=== PATIENT | female | born 1980 | race Caucasian/White ===

== ENCOUNTER → 2017-07-15 | Outpatient (CLI) | payer BC ==
[~2017-07-15] MED LIST: ALPR1TAB3 PO; FE FCAP3 PO; HYDR-3516 PO; TAMO20TA6 PO; VENL100T PO
[2017-07-15 14:05] LABS: AUTOMATED NEUTROPHIL # 3.2 TH/MM3 (1.8-7.7); BASOPHIL % 0.6 % (0.0-2.0); EOSINOPHIL # 0.1 TH/MM3 (0-0.4); EOSINOPHIL % 2.5 % (0.0-4.0); HEMOGLOBIN 13.5 GM/DL (11.6-15.3); LYMPH % 19.7 % (9.0-44.0); LYMPHOCYTE # 0.9 TH/MM3 (1.0-4.8); MEAN CELL VOLUME 85.9 FL (80.0-100.0); MEAN CORPUSCULAR HEMOGLOBIN 29.9 PG (27.0-34.0); MEAN CORPUSCULAR HGB CONC 34.8 % (32.0-36.0); MEAN PLATELET VOLUME 9.6 FL (7.0-11.0); MONOCYTE # 0.3 TH/MM3 (0-0.9); NEUT % 70.2 % (16.0-70.0); PLATELET COUNT 175 TH/MM3 (150-450); RED BLOOD COUNT 4.54 MIL/MM3 (4.00-5.30); RED CELL DISTRIBUTION WIDTH 13.5 % (11.6-17.2); WHITE BLOOD COUNT 4.6 TH/MM3 (4.0-11.0)
[2017-07-15 14:20] LABS: PROTHROMBIN TIME - PATIENT 9.9 SEC (9.8-11.6)
[2017-07-15 14:29] LABS: ALBUMIN 4.1 GM/DL (3.4-5.0); AST (GOT) 23 U/L (15-37); BICARBONATE 28.9 MEQ/L (21.0-32.0); BLOOD UREA NITROGEN 11 MG/DL (7-18); CALCIUM 8.7 MG/DL (8.5-10.1); CHLORIDE 101 MEQ/L (98-107); CREATININE 0.43 MG/DL (0.50-1.00); GLOMERULAR FILTRATION RATE 164 ML/MIN (>89); GLUCOSE,FASTING 57 MG/DL (74-99); SODIUM (NA) 138 MEQ/L (136-145)
[2017-07-15 14:31] LABS: ALT (GPT) 25 U/L (10-53)
[2017-07-15 14:34] LABS: ALKALINE PHOSPHATASE 115 U/L (45-117); TOTAL BILIRUBIN ADULT 0.6 MG/DL (0.2-1.0); TOTAL PROTEIN 7.7 GM/DL (6.4-8.2)
== END ==
LOC: CPRE 10:52
PROVIDERS: ATTEND Obstetrics & Gynecology Gynecologic Oncology
DX: Z01.812 Encounter for preprocedural laboratory examination (principal); Z85.3 Personal history of malignant neoplasm of breast
CPT/HCPCS: 36415; 80053; 84703; 85025; 85610; 85730

== ENCOUNTER 2017-07-28 08:38 | Observation (INO) | payer BC ==
[~2017-07-28] VITALS: Ht 177.8 cm; Wt 77.1 kg
[2017-07-28] MEDS ORDERED: CHLORHEXIDINE GLUCONATE 2 % 1 PACK (2 CLOTHS) TOPICAL PRN (09:15)
[2017-07-28] MEDS ORDERED: POVIDONE IODINE 5% (ANTISEPSIS KIT) 4 APPLICATIONS EACH NARE PRN (09:15)
[2017-07-28] MEDS ORDERED: HEPARIN SODIUM - SQ 10,000 UNITS/ML VIAL SQ SCH (09:15)
[2017-07-28] MEDS ORDERED: LACTATED RINGER'S 1000 ML IV PRN (09:15)
[2017-07-28] MEDS ORDERED: METOPROLOL TARTRATE 25 MG TAB PO PRN (09:15)
[2017-07-28] MEDS ORDERED: INSULIN HUMAN REGULAR 1,000 UNITS/10 ML VIAL SQ PRN (09:15)
[2017-07-28] MEDS ORDERED: SODIUM CHLORID 0.9% 500 ML IV PRN (09:15)
[2017-07-28] MEDS ORDERED: ceFAZolin 1,000 MG/NS 100 ML IV SCH ×2 (09:15)
[2017-07-28] MEDS ORDERED: LIDOCAINE 0.5%/EPINEPHrine 1:200,000 SOLN 50 ML VIAL ONE (11:11)
[2017-07-28] MEDS ORDERED: ACETAMINOPHEN 1000 MG/100 ML 100 ML IV ONE (11:16)
[2017-07-28] MEDS ORDERED: SUGAMMADEX SODIUM 200 MG/2 ML VIAL IV PUSH ONE (11:16)
[2017-07-28] MEDS ORDERED: FAMOTIDINE 20 MG/2 ML VIAL ONE (11:39)
[2017-07-28] MEDS ORDERED: APREPITANT 40 MG CAP ONE (11:43)
[2017-07-28] MEDS ORDERED: ROCURONIUM INJ 50 MG/5 ML SYRINGE IV PUSH ONE (12:00)
[2017-07-28] MEDS ORDERED: STERILE WATER FOR INJECTION 20 ML VIAL IV ONE (12:00)
[2017-07-28] MEDS ORDERED: KETOROLAC TROMETHAMINE 30 MG/ML (IVP) VIAL IV PUSH ONE (12:00)
[2017-07-28] MEDS ORDERED: ONDANSETRON HCL 4 MG/2 ML VIAL IV ONE (12:00)
[2017-07-28] MEDS ORDERED: PROPOFOL 200 MG/20 ML AMP IV ONE (12:00)
[2017-07-28] MEDS ORDERED: VECURONIUM BROMIDE 20 MG VIAL IV ONE (12:00)
[2017-07-28] MEDS ORDERED: DEXAMETHASONE SOD PHOS 4 MG/ML VIAL IV ONE (12:00)
[2017-07-28] MEDS ORDERED: NORMOSOL R INJ 1,000 ML IV ONE (12:00)
[2017-07-28] MEDS ORDERED: LIDOCAINE HCL 1% PF 5 ML SYRINGE OTHER ONE (12:00)
[2017-07-28] MEDS ORDERED: GLYCOPYRROLATE 1 MG/5 ML SYRINGE IV PUSH ONE (12:00)
[2017-07-28] MEDS ORDERED: NEOSTIGMINE 5 MG/5 ML SYRINGE IV PUSH ONE (12:00)
[2017-07-28] MEDS ORDERED: KETOROLAC TROMETHAMINE 30 MG/ML (IVP) VIAL IVP SCH (15:30)
[2017-07-28] MEDS ORDERED: ALPRAZolam 1 MG TAB PO PRN (15:30)
[2017-07-28] MEDS ORDERED: oxyCODONE/ACETAMINOPHEN 5 MG/325 MG TAB PO PRN ×2 (15:30)
[2017-07-28] MEDS ORDERED: SODIUM CHLORIDE 0.9% FLUSH 10 ML FLUSH IV FLUSH PRN (15:30)
[2017-07-28] MEDS ORDERED: diphenhydrAMINE HCL 25 MG CAP PO PRN (15:30)
[2017-07-28] MEDS ORDERED: HYDROmorphone HCL PF 1 MG/ML VIAL IVP PRN (15:30)
[2017-07-28] MEDS: RESP: ALBUTEROL 2.5 MG/3 ML NEB (SCH) INH (16:00)
[2017-07-28] MEDS ORDERED: *RESP: ALBUTEROL 2.5 MG/3 ML NEB (PRN) PERIprocedural Use ONLY NEB ONE (16:00)
[2017-07-28] MEDS ORDERED: KETOROLAC TROMETHAMINE 30 MG/ML (IVP) VIAL ONE (16:11)
[2017-07-28] MEDS ORDERED: *morphine SULFATE 4 MG/ML PERIprocedure ONLY ONE ×3 (16:26→17:58)
[2017-07-28] MEDS: D5-1/2 NS + KCL 20 MEQ INJ 1,000 ML IV SCH ×2 (16:30→23:37)
[2017-07-28] MEDS ORDERED: MORPHINE SULFATE 4 MG/ML INJ ONE (16:30)
[2017-07-28] MEDS ORDERED: MIDAZOLAM HCL 2 MG/2 ML VIAL ONE (16:31)
[2017-07-28] MEDS ORDERED: DO NOT ADM ANY ANTICOAGULANT DRUGS PRN (16:45)
[2017-07-28 19:42] VITALS: BP 106/72; PULSE 58; RESP 17; TEMP 98.2; O2SAT 99
[2017-07-28] MEDS: SODIUM CHLORIDE 0.9% FLUSH 10 ML FLUSH IV FLUSH SCH (21:00)
[2017-07-28] MEDS ORDERED: VENLAFAXINE HCL 25 MG TAB PO SCH (21:00)
[2017-07-28] MEDS ORDERED: TAMOXIFEN CITRATE 10 MG TAB PO SCH (21:00)
[2017-07-28 21:02] VITALS: PULSE 75
[2017-07-28] MEDS: ONDANSETRON HCL 4 MG/2 ML VIAL IVP PRN (21:59)
[2017-07-28] MEDS: ACETAMINOPHEN 1000 MG/100 ML 100 ML IV SCH (21:59)
[2017-07-28 23:31] VITALS: BP 106/63; PULSE 71; RESP 18; TEMP 98.1; O2SAT 96
[2017-07-29 00:04] VITALS: PULSE 55
[2017-07-29] MEDS: RESP: ALBUTEROL 2.5 MG/3 ML NEB (SCH) INH ×2 (03:28→10:55)
[2017-07-29] MEDS: ACETAMINOPHEN 1000 MG/100 ML 100 ML IV SCH ×2 (03:58→09:00)
[2017-07-29 04:18] VITALS: PULSE 51
[2017-07-29 06:09] VITALS: BP 98/65; PULSE 53; RESP 18; TEMP 98.3; O2SAT 100
[2017-07-29 06:49] LABS: BASOPHIL % 0.1 % (0.0-2.0); EOSINOPHIL % 0.2 % (0.0-4.0); HEMATOCRIT 32.9 % (35.0-46.0); HEMOGLOBIN 11.6 GM/DL (11.6-15.3); LYMPH % 12.3 % (9.0-44.0); LYMPHOCYTE # 0.8 TH/MM3 (1.0-4.8); MEAN CELL VOLUME 86.3 FL (80.0-100.0); MEAN CORPUSCULAR HEMOGLOBIN 30.3 PG (27.0-34.0); MEAN CORPUSCULAR HGB CONC 35.2 % (32.0-36.0); MEAN PLATELET VOLUME 8.9 FL (7.0-11.0); MONO % 8.2 % (0.0-8.0); MONOCYTE # 0.5 TH/MM3 (0-0.9); NEUT % 79.2 % (16.0-70.0); PLATELET COUNT 133 TH/MM3 (150-450); RED BLOOD COUNT 3.81 MIL/MM3 (4.00-5.30); RED CELL DISTRIBUTION WIDTH 13.6 % (11.6-17.2); WHITE BLOOD COUNT 6.4 TH/MM3 (4.0-11.0)
[2017-07-29 07:24] LABS: BICARBONATE 25.4 MEQ/L (21.0-32.0); CALCIUM 8.1 MG/DL (8.5-10.1); CREATININE 0.44 MG/DL (0.50-1.00)
[2017-07-29] MEDS ORDERED: OXYC-392 PO (07:31)
[2017-07-29] MEDS: SODIUM CHLORIDE 0.9% FLUSH 10 ML FLUSH IV FLUSH SCH (09:00)
[2017-07-29 09:15] VITALS: BP 107/74; PULSE 65; RESP 20; TEMP 98.4; O2SAT 100
[2017-07-29] MEDS ORDERED: SODIUM CHLORIDE 0.9% FLUSH 10 ML FLUSH IV FLUSH PRN (11:45)
[2017-07-29] MEDS: ONDANSETRON HCL 4 MG/2 ML VIAL IVP PRN (11:46)
[2017-07-29] MEDS ORDERED: oxyCODONE/ACETAMINOPHEN 5 MG/325 MG TAB PO PRN ×2 (15:00)
--- NOTE | 2017-07-30 18:36 | MP ---
cc: JOVAN HALL MD,KIP Noel MD DATE OF SURGERY 07/28/2017 PREOPERATIVE DIAGNOSIS 1. Premenopausal breast cancer 2. Desires therapeutic and prophylactic gynecologic surgery. POSTOPERATIVE DIAGNOSIS 1. Premenopausal breast cancer 2. Desires therapeutic and prophylactic gynecologic surgery. PROCEDURE Robotic-assisted laparoscopic hysterectomy bilateral salpingo-oophorectomy. SURGEON Timothy Burks MD [employer] [place] surgical supply assistant ANESTHESIA general endotracheal anesthesia ESTIMATED BLOOD LOSS 50 mL URINE OUTPUT 300 mL IV FLUIDS 700 mL HISTORY This is a 37-year-old female diagnosed with premenopausal breast cancer and has undergone bilateral mastectomy. Currently, her treatment is that she is on tamoxifen. She has tissue expanders in place with forthcoming reconstructive surgery and from that standpoint reportedly she is doing well. Given the premenopausal nature, potential estrogen sensitivity of her breast cancer, she has been counseled, recommended for therapeutic as well as prophylactic gynecologic surgery. She has been seen in our office, counseled again today in preop holding area. She is certain that she wishes for complete hysterectomy to remove uterus and cervix in addition to removing tubes and ovaries. She understands the reproductive and menopausal ramifications as well as the potential therapeutic and prophylactic benefit of this surgery. Questions were asked and answered. She wished and agreed to move forward with surgery. FINDINGS At time of surgery anatomy grossly appears normal. Uterus sounds to approximately 7 cm. Tubes and ovaries grossly appear normal. In the peritoneal cavity, there is no obvious peritoneal implants. The liver diaphragm edges are smooth. The omentum grossly appears normal. Large and small bowel and adjacent mesentery appear normal without implants. There is no obvious adenopathy. The uterus once removed showed no abnormality within the endometrial cavity and preliminary gross inspection by pathologist confirmed no obvious neoplastic change with final pathology forthcoming. PROCEDURE IN DETAIL She was taken to the operating room placed in dorsal lithotomy position after general endotracheal anesthesia was administered. Time-out was undertaken. She was identified by sight recognition and hospital ID bracelet and the proposed procedure was reviewed and confirmed. She was carefully positioned in padded Siva stirrups. Her arms were padded and secured to the sides. She was further secured to the operating table with egg crate padding and tape in across chest over the shoulder fashion with careful positioning to avoid any pressure on the breast implant tissue. She was prepped, draped sterile fashion, placed in lithotomy position, cervix grasped, uterine cavity sounded, cervix dilated. Standard V-Care manipulator inserted and secured usual fashion. A 16 [place] Aiken catheter was to be placed in the bladder, but she had some urethral narrowing. Gentle dilation still did not allow placement of the 16 [place] catheter, so when a 12-[place] catheter became available, this was placed without difficulty and she was returned to low lithotomy position. Change of sterile gloves was undertaken. We confirmed that an orogastric tube was in the stomach on suction. With manual elevation of the abdominal wall, 5 mm cannula placed in the left upper quadrant and an atraumatic entry was confirmed as carbon dioxide gas was insufflated. She had a previous midline laparoscopic incision above the umbilicus. This was used as an incision was made through the same scar and the 12-mm cannula was introduced and then 8-mm cannula placed in the right upper quadrant, left lateral quadrant and original 5-mm exchanged for an 8-mm cannula. She was placed in steep Trendelenburg position. The peritoneal anatomy was explored with findings as described above. The small bowel was folded back on its mesenteric root. A single adhesion between the omentum and the anterior abdominal wall was taken down with sharp dissection and three Ray-Stella sponges were placed around the root of the small bowel mesentery. Robotic system brought into the operative field, attached in the usual fashion. Monopolar scissors, fenestrated bipolar forceps and Prograsp manipulators placed in arms #1, 2 and 3 respectively and I took my place at the surgeon's console. Right round ligament isolated, cauterized transected. Anterior and posterior leafs of the broad ligament were opened. Right ureter was identified. The right infundibulopelvic ligament was isolated. The intervening peritoneum was opened. The infundibulopelvic ligament was isolated to the level of the pelvic brim where it was cauterized and transected. Posterior peritoneum opened along the right side of the uterus and cervix and a right vesicouterine peritoneum dissected off the lower uterine segment and cervix. Right uterine vessels were skeletonized, cauterized and transected as were the cardinal, paracervical and uterosacral ligaments. Attention was directed toward the left side. Left round ligament isolated, cauterized, transected. Anterior and posterior leafs of the broad ligament were opened. Left ureter was identified. The left infundibulopelvic ligament was isolated. The intervening peritoneum was opened. the infundibulopelvic ligament was isolated to the level of the pelvic brim where it was cauterized and transected. Posterior peritoneum opened along the left side of the uterus and cervix and the left vesicouterine peritoneum dissected off the lower uterine segment and cervix. The left uterine vessels were skeletonized. The left uterine vessels were cauterized and transected as were the cardinal, paracervical and uterosacral ligaments. Colpotomy was performed the cervix from the upper vagina. The specimen was withdrawn transvaginally which included uterus, cervix, tubes and ovaries and a pneumo occluder balloon was placed in the vagina to maintain pneumoperitoneum. Instruments 1 and 3 exchanged for needle drivers as 0 Vicryl suture was introduced. Vaginal cuff was closed with [id number] securing sutures at the lateral vaginal angles x2, tied via instrument tie. The needle was cut and removed. A second suture was brought in place and the central portion of the cuff was secured and closed with a running continuous full-thickness closure, tied via instrument tie. The needle was cut and removed. Pelvis was thoroughly irrigated. Small bleeders rendered hemostatic with bipolar cautery. Vaginal cuff was well-supported completely hemostatic. There was a good margin between the vaginal cuff and the edge of the bladder. The bladder integrity was intact. The ureters showed good peristalsis bilaterally. It was felt that all reasonable surgical objectives had been completed. Robotic instruments were removed. The robotic system disengaged from the operative field. I reentered the bedside under sterile condition. Each of the three Ray-Stella sponges that had been placed were now removed laparoscopically through the 12-mm cannula. Each were inspected and noted to be removed in their entirety. Visual inspection confirmed there were no remaining foreign objects in the peritoneal cavity. Preliminary counts were correct. All sites hemostatic. The 12-mm fascial defect was closed with interrupted 0 Vicryl sutures using a needle pass fascial closure apparatus, tied securely rendering the fascia completely airtight and hemostatic. The remaining cannulas were withdrawn. Carbon dioxide gas was removed from the peritoneal cavity. 3-0 Vicryl subcutaneous, 3-0 Vicryl subcuticular and Steri-Strips were used to close these incisions. She was returned to dorsal lithotomy position. Pelvic exam confirmed the vaginal cuff was well supported, hemostatic. There were no vaginal lacerations. No remaining foreign objects in the vagina. Final counts were correct. She was returned to dorsal supine position and was pending reversal of anesthesia when I left the operating room to precede her to the Post Anesthesia Care Unit. MD ERNESTO Nuñez/ /7:33 AM /6:01 PM
--- NOTE | 2017-08-02 20:15 | MD ---
cc: JOVAN HALL MD,KIP Noel MD ADMISSION DATE: 07/28/2017 DISCHARGE DATE: 07/29/2017 PROCEDURE 07/28/2017 robotic-assisted laparoscopic hysterectomy bilateral salpingo-oophorectomy. HOSPITAL COURSE She did well in the early postop period, hemodynamically stable, tolerating oral intake. Aiken catheter removed pending voiding. Ins and outs 900/500. LABORATORY DATA Hemoglobin/hematocrit 11.6 and 32.9. Electrolytes - potassium 3.8, BUN and creatinine 5/0.44 PHYSICAL EXAMINATION VITAL SIGNS: Afebrile, pulse 53-75, respirations 18, blood pressure 98-106 over 63-65, O2 saturations greater than equal to 96%. GENERAL: Alert and oriented x3 in no acute distress. LUNGS: With mild rales at the bases, apices clear. CARDIOVASCULAR: Regular rate and rhythm. ABDOMEN: Soft. Incision is clean, dry. 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 ASSESSMENT Postop day #1 FINDINGS AT SURGERY Steps taken discussed, activities, restrictions reviewed. Questions were answered. She expressed good understanding. PLAN Anticipate she will meet criteria for discharge to home. She is to resume prior medications. She will have a prescription for oxycodone for pain. She is to contact our office to schedule follow up in 2 weeks or contact our office should she have any questions or problems between now and the time of scheduled followup. MD ERNESTO Nuñez/ /7:30 AM /8:04 PM
== END 2017-07-29 12:02 | disposition home or self-care (01) ==
LOC: HSDC 08:38 → HCIN 15:28
PROVIDERS: ADMIT Obstetrics & Gynecology Gynecologic Oncology; ATTEND Obstetrics & Gynecology Gynecologic Oncology
DX: Z40.02 Encounter for prophylactic removal of ovary(s) (principal); C50.919 Malignant neoplasm of unspecified site of unspecified female breast; N83.8 Other noninflammatory disorders of ovary, fallopian tube and broad ligament; Z90.13 Acquired absence of bilateral breasts and nipples; Z98.51 Tubal ligation status; Z79.810 Long term (current) use of selective estrogen receptor modulators (SERMs); Z87.891 Personal history of nicotine dependence
CPT/HCPCS: 00840; 58552; 80048; 85025; 86850; 86900; 86901; 88307; 88329; 94150; 94640; 94664; 96361; 96365; 96375; 96376; G0378; J0131; J0690; J1100; J1642; J1885; J2250; J2270; J2405; J2710; J3010; J3480; J7613; J8501